=== PATIENT | female | born 2000 | race Two or more races ===

== ENCOUNTER 2019-06-19 16:07 | Emergency (ER) | payer OTHER ==
[2019-06-19 16:12] VITALS: BP 104/55
[2019-06-19] MEDS ORDERED: DEXAMETHASONE SOD PHOS INJ 10 MG/1 ML VIAL IM ONE (16:36)
--- NOTE | 2019-06-19 16:54 | ER Document Report ---
HPI - HPI Time Seen by Provider: 06/19/19 16:29 Pain Level: 3 Context: 19-year-old healthy female presents the emergency department with sore throat for the last 8 days. Patient was seen at an urgent care yesterday and prescribed amoxicillin but no rapid strep was performed. Patient states that she has significant dysphagia. No fevers, headaches, ear pain, neck stiffness, anterior tenderness to palpation of the neck, no cough, no shortness of breath or chest pain, no nausea or vomiting, no abdominal pain, no urinary symptoms. - EENT EENT: REPORTS: Sore Throat Past Medical History - Social History Smoking Status: Never Smoker Chew tobacco use (# tins/day): No Drug Abuse: None Family History: None Patient has suicidal ideation: No Patient has homicidal ideation: No Vertical Provider Document - CONSTITUTIONAL Notes: PHYSICAL EXAMINATION: Reviewed vital signs and charting by RN GENERAL: Alert, interacts well. No acute distress. HEAD: Normocephalic, atraumatic. EYES: Pupils equal and round. Extraocular movements intact. ENT: Oral mucosa moist, tongue midline. No significant tonsillar hypertrophy bilateral with some exudate on the left tonsils with erythema NECK: Full range of motion. Trachea midline. LUNGS: Clear to auscultation bilaterally, no wheezes, rales, or rhonchi. No respiratory distress. HEART: Regular rate and rhythm. No murmur EXTREMITIES: Moves all 4 extremities spontaneously. No edema, No cyanosis. PSYCH: Normal affect, normal mood. SKIN: Warm, dry, normal turgor. No rashes or lesions noted. Course - Re-evaluation Re-evalutation: 06/19/19 16:39 Presentation of several days of sore throat in an otherwise well-appearing patient. Rapid strep is negative. History and exam are not consistent with a retropharyngeal abscess or peritonsillar abscess. Airway is patent. No difficulty handling oral secretions. Vitals within normal limits. Patient was treated with a dose of dexamethasone and advised on symptomatic care. Suspect likely viral pharyngitis. At this time will discharge with return precautions and follow-up recommendations. Verbal discharge instructions given a the bedside and opportunity for questions given. Medication warnings reviewed. Patient is in agreement with this plan and has verbalized understanding of return precautions and the need for primary care follow-up in the next 24-72 hours. - Vital Signs Vital signs: Temp Pulse Resp BP Pulse Ox 98.3 F 95 20 104/55 L 97 06/19/19 16:11 06/19/19 16:11 06/19/19 16:11 06/19/19 16:11 06/19/19 16:11 Discharge - Discharge Clinical Impression: Pharyngitis Qualifiers: Pharyngitis/tonsillitis etiology: unspecified etiology Qualified Code(s): J02.9 - Acute pharyngitis, unspecified Condition: Good Disposition: HOME, SELF-CARE Additional Instructions: Your strep test is negative. Your symptoms are likely due to an viral infection and will resolve in the next 1-2 weeks. You have also been given a dose of steroids to help with your throat discomfort. Please continue to take ibuprofen 600 mg every 6 hours or Tylenol 1000 mg every 6 hours as needed for throat discomfort. You can also gargle with salt water. Continue to drink plenty of fluids. Follow-up with your primary care doctor in the next several days. Return if you become unable to swallow, have difficulty breathing, pass out, have persistent vomiting that prevents you from being able to tolerate fluids, or have any other symptoms that are concerning to you. Prescriptions: Nystatin/Dexameth/Diphen [Magic Mouthwash (Omh Formula) Susp] 5 ml PO QID #120 ml
[2019-06-19] MEDS ORDERED: KETOROLAC TROMETHAMINE INJ/PF 30 MG/1 ML SDV IM ONE (17:10)
== END 2019-06-19 17:20 | disposition home or self-care (01) ==
LOC: ER 16:07
DX: J02.9 Acute pharyngitis, unspecified (principal)
CPT/HCPCS: 99283; 96372; 87070; 87880; J1885; J1100

== ENCOUNTER 2019-11-14 15:48 | Emergency (ER) | payer OTHER ==
--- NOTE | 2019-11-14 17:54 | ER Document Report ---
ED Medical Screen (RME) - General Chief Complaint: Anxiety Stated Complaint: ANXIETY Time Seen by Provider: 11/14/19 17:38 - HPI Notes: 11/14/19 17:51 19-year-old female 1 para 0 presents to the emergency room today with s harp pain in her pelvic area that started yesterday, she is roughly 8 weeks . Patient also states that she has feelings of self-harm, states she usually pulls out her hair squeezes something really hard or makes her self fall down, states her anxiety has been severe. She has not hurt herself since she found out that she was because she does not want hurt the baby. When asked what the worst thing going on, she reports her anxiety and wanting to hurt herself. Patient states things have become really "bad" since she found out she was and a lot of "horrible things been going on". States she has not been able to sleep in days. Denies any fevers or chills. Has any chest pain or shortness of breath, denies any vaginal bleeding. I have greeted and performed a rapid initial assessment of this patient. A comprehensive ED assessment and evaluation of the patient, analysis of test results and completion of the medical decision making process will be conducted by additional ED providers. PHYSICAL EXAMINATION: GENERAL: Well-appearing, well-nourished and in no acute distress. CV: s1, s2 regular LUNGS: No respiratory distress Musculoskeletal: Normal range of motion NEUROLOGICAL: Normal speech, normal gait. SKIN: Warm, Dry, normal turgor, no rashes or lesions noted. - Related Data Allergies/Adverse Reactions: No Known Allergies Allergy (Verified 11/14/19 17:50) Home Medications: multivitamin Past Medical History - Social History Chew tobacco use (# tins/day): No Frequency of alcohol use: Occasional Drug Abuse: None Physical Exam - Vital signs Vitals: Temp 98.2 F 11/14/19 17:40 Course - Vital Signs Vital signs: Temp Pulse Resp BP Pulse Ox 98.2 F 98 16 147/94 H 98 11/14/19 17:50 11/14/19 17:50 11/14/19 17:50 11/14/19 17:50 11/14/19 17:50
[2019-11-14 18:37] LABS: ABSOLUTE LYMPHOCYTES (AUTO) 2.1 10^3/uL (0.5-4.7); ABSOLUTE MONOCYTES (AUTO) 0.6 10^3/uL (0.1-1.4); ABSOLUTE NEUT (AUTO) 9.1 10^3/uL (1.7-8.2); BASOPHILS % (AUTO) 0.2 % (0-2); EOSINOPHILS % (AUTO) 0.2 % (0-6); HEMATOCRIT 43.6 % (36.0-47.0); HEMOGLOBIN 14.9 g/dL (12.0-15.5); LYMPHOCYTES % (AUTO) 17.5 % (13-45); MEAN CORPUSCULAR HEMOGLOBIN 30.8 pg (27.0-33.4); MEAN CORPUSCULAR HGB CONC 34.2 g/dL (32.0-36.0); MEAN CORPUSCULAR VOLUME 90 fl (80-97); MONOCYTES % (AUTO) 5.4 % (3-13); PLATELET COUNT 306 10^3/uL (150-450); RED BLOOD COUNT 4.83 10^6/uL (3.72-5.28); RED CELL DISTRIBUTION WIDTH 12.2 % (11.5-14.0); SEGMENTED NEUTROPHILS % (AUTO) 76.7 % (42-78); TOTAL CELLS COUNTED % (AUTO) 100 %; WHITE BLOOD COUNT 11.9 10^3/uL (4.0-10.5)
[2019-11-14 18:39] LABS: APPEARANCE,URINE CLEAR; BILIRUBIN,URINE NEGATIVE (NEGATIVE); COLOR,URINE YELLOW; GLUCOSE, URINE NEGATIVE (NEGATIVE); KETONES,URINE NEGATIVE (NEGATIVE); LEUKOCYTE ESTERASE,URINE NEGATIVE (NEGATIVE); NITRITE,URINE NEGATIVE (NEGATIVE); PROTEIN,URINE 30 mg/dL (NEGATIVE); URINE SPECIFIC GRAVITY 1.019; UROBILINOGEN,URINE NEGATIVE mg/dL (<2.0)
--- NOTE | 2019-11-14 18:51 | EKG REPORT ---
SEVERITY:- NORMAL ECG - SINUS RHYTHM : Confirmed by: Kulwinder Kevin MD 14-Nov-2019 18:50:48
--- NOTE | 2019-11-14 18:53 | RADIOLOGY REPORT (SQ) ---
EXAM DESCRIPTION: U/S OB TRANSVAGINAL W/O DOP IMAGES COMPLETED DATE/TIME: 11/14/2019 6:32 pm REASON FOR STUDY: pelvic pain, 8 weeks preg COMPARISON: None. TECHNIQUE: Transvaginal static and realtime grayscale images acquired of the pelvis. Additional mike cted spectral and color Doppler images recorded. All images stored on PACs. bHCG: Pending CLINICAL DATES: Unknown LIMITATIONS: None. FINDINGS: FETUS: Single Living intrauterine . ULTRASOUND EGA: A weeks 1 day ULTRASOUND ARTEMIO: 06/24/2020 EFW: Not applicable less than 20 weeks. CRL: 1.7 cm FHR: 168 beats per minute. SURVEY: Too early to assess. AMNIOTIC FLUID: Adequate amount. PLACENTA: Not yet developed due to early gestation. SUBCHORIONIC BLEED: No SIZE OF BLEED: Not applicable. UTERUS: No masses. No anomalies. CERVICAL LENGTH: 2.6 cm. Closed. RIGHT ADNEXA: Normal ovary with normal vascular flow. 3.6 x 2.9 x 2.5 cm. No adnexal free fluid. No adnexal masses. LEFT ADNEXA: Normal ovary with normal vascular flow. 3.5 x 2.1 x 2.2 cm. No adnexal free fluid. No adnexal masses. FREE FLUID: None. OTHER: No other significant finding. IMPRESSION: LIVING INTRAUTERINE . EGA 8 weeks 1 day Trimester of : First trimester - 0 to 13 weeks. TECHNICAL DOCUMENTATION: JOB ID: [id number] 2010 [employer]- All Rights Reserved rev Reading location - IP/workstation name: [email or web address]
[2019-11-14 18:55] LABS: URINE AMPHETAMINES SCREEN NEGATIVE; URINE BARBITURATES SCREEN NEGATIVE; URINE BENZODIAZEPINES SCREEN NEGATIVE; URINE COCAINE SCREEN NEGATIVE; URINE MARIJUANA (THC) SCREEN NEGATIVE; URINE METHADONE SCREEN NEGATIVE; URINE PHENCYCLIDINE SCREEN NEGATIVE
[2019-11-14 18:58] LABS: ALBUMIN 4.9 g/dL (3.5-5.0); ALKALINE PHOSPHATASE 64 U/L (38-126); ANION GAP 10 (5-19); ASPARTATE AMINO TRANSFERASE 24 U/L (14-36); BILIRUBIN,TOTAL 0.7 mg/dL (0.2-1.3); BLOOD UREA NITROGEN 7 mg/dL (7-20); CALCIUM 9.9 mg/dL (8.4-10.2); CARBON DIOXIDE 24 mmol/L (22-30); CHLORIDE 101 mmol/L (98-107); GLUCOSE 85 mg/dL (75-110); POTASSIUM 4.4 mmol/L (3.6-5.0); TOTAL PROTEIN 8.2 g/dL (6.3-8.2)
[2019-11-14 19:13] LABS: ACETAMINOPHEN < 10 ug/mL (10-30); ALCOHOL < 10 mg/dL (NONE DETECTED); SALICYLATE < 1.0 mg/dL (2.0-20.0)
[2019-11-15] MEDS ORDERED: ACETAMINOPHEN 325 MG TABLET PO ONE (04:05)
[2019-11-15] MEDS ORDERED: METOCLOPRAMIDE HCL 10 MG TABLET PO ONE (04:06)
--- NOTE | 2019-11-15 04:09 | ER Document Report ---
ED General - General Chief Complaint: Anxiety Stated Complaint: ANXIETY Time Seen by Provider: 11/14/19 17:38 Primary Care Provider: GLO SOOD PA-C [Primary Care Provider] - Follow up as needed Mode of Arrival: Ambulatory Information source: Patient TRAVEL OUTSIDE OF THE [place] IN LAST 30 DAYS: No - HPI Onset: Other - over the last several days Onset/Duration: Gradual Quality of pain: Cramping - abdominal pain Severity: Mild Pain Level: 2 Associated symptoms: Headache, Other - Abdominal Exacerbated by: Denies Relieved by: Denies Similar symptoms previously: Yes - patient has been depressed and tried to harm herself in the past Recently seen / treated by doctor: No Notes: 19 year old G1P- female who is approximately 8 weeks by dates here in the ER for evaluation of depression and suicidal ideation. The patient says she is having problems with her and she has been thinking of harming herself. The patient does not want to harm herself knowing she is but she is afraid she still might. The patient says she has tried to cut herself in the past. The patient is also complaining of some abdominal pains/cramps, nausea, and a headache. - Related Data Allergies/Adverse Reactions: No Known Allergies Allergy (Verified 11/14/19 17:50) Home Medications: multivitamin Past Medical History - General Information source: Patient - Social History Smoking Status: Never Smoker Chew tobacco use (# tins/day): No Frequency of alcohol use: Occasional Drug Abuse: None Lives with: Spouse/Significant other Family History: None Patient has homicidal ideation: No Review of Systems - Review of Systems Constitutional: No symptoms reported EENT: No symptoms reported Cardiovascular: No symptoms reported Respiratory: No symptoms reported Gastrointestinal: Abdominal pain, Nausea Genitourinary: No symptoms reported Female Genitourinary: No symptoms reported Musculoskeletal: No symptoms reported Skin: No symptoms reported Hematologic/Lymphatic: No symptoms reported Neurological/Psychological: Depression, Anxiety, Headaches, Suicidal ideation -: Yes All other systems reviewed and negative Physical Exam - Vital signs Vitals: Temp 98.2 F 11/14/19 17:40 - Notes Notes: GENERAL: Well-appearing, well-nourished and in no acute distress. HEAD: Atraumatic, normocephalic. EYES: Pupils equal round and reactive to light, extraocular movements intact, sclera anicteric, conjunctiva are normal. ENT: External Ears normal, nares patent, oropharynx clear without exudates. Moist mucous membranes. NECK: Normal range of motion, supple without lymphadenopathy or JVD. LUNGS: Breath sounds clear to auscultation bilaterally and equal. No wheezes rales or rhonchi. HEART: Regular rate and rhythm without murmurs, rubs or gallops. ABDOMEN: Soft, nontender, normoactive bowel sounds. No guarding, no rebound. No masses appreciated. EXTREMITIES: Normal range of motion, no pitting or edema. No clubbing or cyanosis. NEUROLOGICAL: Cranial nerves II through XII grossly intact. Normal speech, normal gait. PSYCH: Normal mood, normal affect. SKIN: Warm, Dry, normal turgor, no rashes or lesions noted. Course - Re-evaluation Re-evalutation: 11/15/19 04:08 The patient is depressed and somewhat suicidal in the setting of being 8 weeks and 1 day . She has no real plan but she has tried to cut herself in the past. The patient is medically cleared and awaiting Mental Health evaluation. The patient has been having some mild abdominal pains/cramps and a headache as well. This is the patient's first and her labs and pelvic ultrasound are within normal limits. Patient was given Tylenol and Reglan for Headache and Nausea while in the ER. - Vital Signs Vital signs: Temp Pulse Resp BP Pulse Ox 98.2 F 98 16 147/94 H 98 11/14/19 17:50 11/14/19 17:50 11/14/19 17:50 11/14/19 17:50 11/14/19 17:50 - Laboratory Result Diagrams: 11/14/19 18:04 11/14/19 18:04 Laboratory results interpreted by mi: 11/14/19 11/14/19 11/14/19 18:04 18:04 18:04 WBC 11.9 H Absolute Neuts (auto) 9.1 H Sodium 135.4 L Creatinine 0.49 L Beta HCG, Quant 548833.00 H Urine Protein 30 H Urine Ascorbic Acid 20 H Salicylates < 1.0 L Acetaminophen < 10 L - EKG Interpretation by [place] EKG shows normal: Sinus rhythm, [place], Intervals, QRS Complexes Rate: Normal Rhythm: NSR Additional EKG results interpreted by mi: 11/15/19 04:07 T wave inversions in III and V1 Discharge - Discharge Clinical Impression: Suicidal ideation Qualifiers: Weeks of gestation: unspecified Qualified Code(s): Z34.90 - Encounter for supervision of normal , unspecified, unspecified trimester Headache Qualifiers: Headache type: unspecified Headache chronicity pattern: acute headache Intr actability: not intractable Qualified Code(s): R51 - Headache Condition: Stable Disposition: OTHER Referrals: GLO SOOD PA-C [Primary Care Provider] - Follow up as needed
[2019-11-15] MEDS ORDERED: ACETAMINOPHEN 325 MG TABLET ONE (04:23)
[2019-11-15 17:28] LABS: CHLAM PCR NOT DETECTED (NOT DETECT)
--- NOTE | 2019-11-15 18:50 | PSYCHOLOGICAL NOTE ---
Psych Note - Psych Note Date seen by psych provider: 11/15/19 Time seen by psych provider: 12:00 Psych Note: Reason For Consult:Depression/Anxiety Consent Permissions:none provided Patient discloses she came to [facility] ED because she was having thoughts of engaging in self-harm. She confirms she has a long history of engaging in self-harm behaviors however states that she did not want to do anything to hurt herself because she is currently . She denies that her past behaviors and thoughts last night involved wanting to . Patient discusses at length her current thoughts surrounding her marital discord. Patient reports she is never taking medication because she does not want to "walk around like a zombie." She continues report that now that she is she would prefer not to take any medications. Patient discloses previous events of significant depressive episodes which resulted in difficulty getting out of bed. Patient reports normally she is "happy person" however there are times which "are infrequent.... I can't get out of bed for a few days." Patient is alert and orientated to person, place, time and circumstance. Mood is dsyphoric with congruent affect. Patient denies suicidal and homicidal ideation. Delusions are absent and behaviors congruent with an intact reality based presentation ie organized and linear thought process. Eye contact is well-maintained. Conversational speech is within normal rate, tone and prosody. Intellectual abilities appear to be within the average range. Attention and concentration are good. Insight, judgment, impulse control are currently good as evidenced by seeking help and engaging with clinician to develop plan of care. Diagnosis: Marital discord Major depressive disorder; recurrent Impression\\plan: She is cleared from acute psychiatric services. Patient denies any thoughts of wanting to engage in self-harm behaviors and denies any thoughts of wanting to . Patient actively engaged with clinician and develop plan of care i.e. follow-up with therapy to assist in interpreting her environment, understand her triggers, and build her positive coping skills. Patient reports she is uninterested in taking medications especially since she is not . Patient engaged in solution focused techniques. Patient has been vital local resource list of area providers including mobile crisis contact information. Dr. Jones was consulted to care management of this patient; attending physicians in agreement with recommendations and disposition.
[2019-11-15 19:00] VITALS: BP 116/64
--- NOTE | 2019-11-15 19:05 | ER Document Report ---
Doctor's Note Notes: 11/15/19 19:05 Patient is no longer feeling suicidal, we have discussed multiple coping mechanisms with the patient, discussed with patient whether or not she has been tested for STDs. Patient has not yet had STD testing. Patient was then checked for gonorrhea, chlamydia, HIV and syphilis. The first 3 all came back negative. Syphilis testing is a send out and will not come back for several days. Patient is not having any symptoms and will not be given prophylactic treatment at this time. GENERAL: Alert, interacts well. No acute distress. HEAD: Normocephalic, atraumatic EYES: Pupils equal, round and reactive to light, extraocular movements intact. ENT: Oral mucosa moist, tongue midline. NECK: Full range of motion, supple, trachea midline. LUNGS: no respiratory distress. EXTREMITIES: Moves all 4 extremities spontaneously, no edema. No cyanosis. NEUROLOGICAL: Alert and oriented x3, normal speech. PSYCH: Normal mood, normal affect. SKIN: Warm, Dry, normal turgor, no rashes or lesions noted. Patient is medically and psychiatrically cleared. Discharged home.
== END 2019-11-15 19:00 | disposition home or self-care (01) ==
LOC: ER 15:48
DX: O26.891 Other specified pregnancy related conditions, first trimester (principal); R45.851 Suicidal ideations; R10.9 Unspecified abdominal pain; R51 Headache; R11.0 Nausea; O99.341 Other mental disorders complicating pregnancy, first trimester; F41.9 Anxiety disorder, unspecified; F32.9 Major depressive disorder, single episode, unspecified; Z91.5 Personal history of self-harm; Z63.0 Problems in relationship with spouse or partner; Z79.899 Other long term (current) drug therapy; Z3A.08 8 weeks gestation of pregnancy
CPT/HCPCS: 36415; 76817; 80053; 80307; 81001; 84702; 85025; 86592; 86701; 87491; 87591; 93005; 93010; 99285